=== PATIENT | female | born 1980 | race Caucasian/White ===

== ENCOUNTER 2020-06-12 12:10 | Inpatient (IN) | payer MEDICAID ==
[~2020-06-12] VITALS: Ht 149.9 cm; Wt 67.3 kg
[~2020-06-12 12:10] MED LIST: QUET100T PO; QUET100T33 PO
[2020-06-12] MEDS ORDERED: ZOLPIDEM TARTRATE 10 MG TABLET PO PRN ×2 (13:00→13:45)
[2020-06-12] MEDS ORDERED: LORazepam 2 MG TABLET PO PRN (13:00)
[2020-06-12] MEDS ORDERED: HALOPERIDOL 5 MG TABLET PO PRN ×2 (13:00→13:45)
[2020-06-12 15:15] VITALS: BP 133/89
[2020-06-12 16:01] VITALS: BP 133/89
[2020-06-12 16:28] VITALS: BP 133/89
[2020-06-12] MEDS: LORazepam 2 MG TABLET PO PRN (16:35)
[2020-06-12] MEDS ORDERED: INFLUENZA VIRUS VACCINE QVS 2020-21 (6MO+)/PF 60 MCG/0.5 ML SYRINGE IM ONE (19:45)
[2020-06-13] MEDS: LORazepam 2 MG TABLET PO PRN ×3 (05:22→15:46)
[2020-06-13 05:26] VITALS: BP 143/92
[2020-06-13 08:20] LABS: BASOPHILS % (AUTO) 0.5 % (0.0-2.0); EOSINOPHILS % (AUTO) 1.2 % (1.0-6.0); HEMATOCRIT 37.3 % (36-46); HEMOGLOBIN 12.4 g/dL (12.0-16.0); LYMPHOCYTES # (AUTO) 1.4 K/uL (1.0-4.8); LYMPHOCYTES % (AUTO) 22.5 % (22.0-44.0); MEAN CORPUSCULAR HEMOGLOBIN 30.3 pg (26.0-34.0); MEAN CORPUSCULAR HGB CONC 33.2 G/dL (31.0-37.0); MEAN CORPUSCULAR VOLUME 91 fL (80-100); MONOCYTES # (AUTO) 0.4 K/uL (0.1-1.0); MONOCYTES % (AUTO) 6.6 % (2.0-9.0); NEUTROPHILS # (AUTO) 4.2 K/uL (1.8-7.7); NEUTROPHILS % (AUTO) 69.2 % (40.0-70.0); PLATELET COUNT (AUTO) 388 K/uL (150-450); RED BLOOD CELL COUNT(AUTO) 4.09 MIL/uL (4.00-5.20); RED CELL DISTRIBUTION WIDTH 13.9 % (11.5-14.5)
[2020-06-13 08:32] LABS: HEMOGLOBIN A1C 5.4 % (3.8-5.6)
[2020-06-13 08:34] LABS: ALANINE AMINOTRANSFERASE 31 U/L (12-78); ALBUMIN 3.9 g/dL (3.4-5.0); ALKALINE PHOSPHATASE 55 U/L (46-116); ANION GAP 10 mmol/L (8-16); ASPARTATE AMINOTRANSFERASE 34 U/L (15-37); BILIRUBIN,TOTAL 0.6 mg/dL (0.1-1.0); CALCIUM, TOTAL 9.4 mg/dL (8.8-10.5); CARBON DIOXIDE 26 mmol/L (22-29); CHLORIDE 101 mmol/L (98-107); CHOL/HDL RATIO 2.2 (3.9-5.7); CHOLESTEROL 138 mg/dL (131-200); CREATININE 0.76 mg/dL (0.60-1.30); GLOMERULAR FILTR. RATE CALC > 60 mL/min (>60); GLUCOSE,RANDOM 104 mg/dL (70-110); HDL CHOLESTEROL 62 mg/dL (40-60); LDL CHOL (CALC.) 70 mg/dL (0-130); POTASSIUM 3.7 mmol/L (3.5-5.1); SODIUM SERUM 137 mmol/L (136-145); TOTAL PROTEIN, SERUM 7.3 g/dL (6.4-8.2); TRIGLYCERIDES 32 mg/dL (15-150); UREA NITROGEN, BLOOD 17 mg/dL (7-18)
[2020-06-13 08:38] VITALS: BP 128/84
[2020-06-13] MEDS: ARIPiprazole 10 MG TABLET PO SCH (09:02)
[2020-06-13] MEDS: GABAPENTIN 400 MG CAPSULE PO SCH ×3 (09:02→15:47)
[2020-06-13] MEDS: ACETAMINOPHEN 325 MG TABLET PO PRN (10:43)
[2020-06-13] MEDS ORDERED: MAG HYDROX/AL HYDROX/SIMETH ES 30 ML SUSPENSION UDCUP PO PRN (11:45)
[2020-06-13] MEDS ORDERED: PETROLATUM,WHITE 28 GM JELLY TP PRN (11:45)
[2020-06-13] MEDS ORDERED: DOCUSATE SODIUM 100 MG CAPSULE PO PRN (11:45)
[2020-06-13] MEDS ORDERED: OMEPRAZOLE 20 MG CAPSULE PO PRN (11:45)
[2020-06-13] MEDS ORDERED: ALBUTEROL SULFATE HFA 90 MCG/PUFF 8 GM INHALER IH PRN (11:45)
[2020-06-13] MEDS ORDERED: BACITRACIN 28 GM OINTMENT TP PRN (11:45)
[2020-06-13] MEDS ORDERED: LOPERAMIDE HCL 2 MG CAPSULE PO PRN (11:45)
[2020-06-13] MEDS ORDERED: CloNIDine HCL 0.1 MG TABLET PO PRN (11:45)
[2020-06-13] MEDS ORDERED: ONDANSETRON HCL 4 MG TABLET PO PRN (11:45)
[2020-06-13] MEDS ORDERED: BENZOCAINE/MENTHOL LOZENGE PO PRN (11:45)
[2020-06-13] MEDS ORDERED: MAGNESIUM HYDROXIDE SUSPENSION 30 ML UDCUP PO PRN (11:45)
[2020-06-13 16:12] VITALS: BP 121/62
[2020-06-14] MEDS: LORazepam 2 MG TABLET PO PRN ×4 (03:11→20:25)
[2020-06-14 04:38] VITALS: BP 129/73
[2020-06-14] MEDS: ACETAMINOPHEN 325 MG TABLET PO PRN ×2 (05:30→17:58)
[2020-06-14] MEDS: GABAPENTIN 400 MG CAPSULE PO SCH ×3 (08:05→17:11)
[2020-06-14] MEDS: ARIPiprazole 10 MG TABLET PO SCH (08:05)
[2020-06-14 08:48] VITALS: BP 117/73
[2020-06-14] MEDS: IBUPROFEN 600 MG TABLET PO PRN (11:26)
[2020-06-14 16:13] VITALS: BP 134/86
[2020-06-15 00:26] VITALS: BP 134/80
[2020-06-15] MEDS: LORazepam 2 MG TABLET PO PRN ×5 (00:33→17:49)
[2020-06-15] MEDS: ACETAMINOPHEN 325 MG TABLET PO PRN ×3 (05:47→16:21)
[2020-06-15 08:03] LABS: AMPHET/METH SCREEN,URINE NEGATIVE (NEGATIVE); BARBITURATE SCREEN, URINE NEGATIVE (NEGATIVE); BENZODIAZEPINES SCREEN,URINE NEGATIVE (NEGATIVE); CANNABINOID SCREEN,URINE POSITIVE (NEGATIVE); COCAINE SCREEN,URINE NEGATIVE (NEGATIVE); METHADONE SCREEN, URINE NEGATIVE (NEGATIVE); OPIATE SCREEN,URINE NEGATIVE (NEGATIVE)
[2020-06-15 08:07] LABS: APPEARANCE,URINE CLEAR (CLEAR); BILIRUBIN,URINE NEGATIVE (NEGATIVE); GLUCOSE, URINE (UA) NEGATIVE (NEGATIVE); KETONES,URINE NEGATIVE (NEGATIVE); LEUKOCYTE ESTERASE ,URINE NEGATIVE (NEGATIVE); NITRATE,URINE NEGATIVE (NEGATIVE); OCCULT BLOOD,URINE SMALL (NEGATIVE); PROTEIN,URINE NEGATIVE (NEGATIVE); UROBILINOGEN,URINE 0.2 mg/dL (<=1.0)
[2020-06-15 08:11] LABS: PHENCYCLIDINE SCREEN,URINE NEGATIVE (NEGATIVE)
[2020-06-15 08:19] VITALS: BP 118/71
[2020-06-15] MEDS: ARIPiprazole 10 MG TABLET PO SCH (08:36)
[2020-06-15] MEDS: GABAPENTIN 400 MG CAPSULE PO SCH ×3 (08:36→16:21)
[2020-06-15 08:42] LABS: BACTERIA,URINE None Seen /HPF (None Seen); SQUAMOUS EPITHELIAL CELL,UR Few /LPF (None Seen); WBC,URINE None Seen /HPF (0-5)
[2020-06-15 16:08] VITALS: BP 120/84
[2020-06-16 00:05] VITALS: BP 112/76
[2020-06-16] MEDS: ACETAMINOPHEN 325 MG TABLET PO PRN ×3 (00:07→21:31)
[2020-06-16 04:28] VITALS: BP 134/90
[2020-06-16] MEDS: LORazepam 2 MG TABLET PO PRN ×4 (05:15→17:53)
[2020-06-16 06:00] VITALS: BP 136/84
[2020-06-16] MEDS: IBUPROFEN 600 MG TABLET PO PRN ×2 (06:11→16:01)
[2020-06-16 08:00] VITALS: BP 111/69
[2020-06-16] MEDS: ARIPiprazole 10 MG TABLET PO SCH (08:16)
[2020-06-16] MEDS: GABAPENTIN 400 MG CAPSULE PO SCH ×3 (08:17→16:01)
[2020-06-16 16:30] VITALS: BP 120/68
[2020-06-17 00:16] VITALS: BP 128/68
[2020-06-17] MEDS: IBUPROFEN 600 MG TABLET PO PRN ×2 (00:43→14:38)
[2020-06-17] MEDS: LORazepam 2 MG TABLET PO PRN ×4 (05:04→16:45)
[2020-06-17] MEDS: ACETAMINOPHEN 325 MG TABLET PO PRN (07:55)
[2020-06-17] MEDS: ARIPiprazole 10 MG TABLET PO SCH (08:06)
[2020-06-17] MEDS: GABAPENTIN 400 MG CAPSULE PO SCH ×3 (08:06→16:45)
[2020-06-17 08:22] VITALS: BP 126/80
[2020-06-17] MEDS: SUMAtriptan SUCCINATE 25 MG TABLET PO PRN (17:30)
[2020-06-18 01:31] VITALS: BP 120/83
[2020-06-18] MEDS: ACETAMINOPHEN 325 MG TABLET PO PRN ×2 (03:44→21:09)
[2020-06-18] MEDS: LORazepam 2 MG TABLET PO PRN ×4 (05:43→20:35)
[2020-06-18] MEDS: GABAPENTIN 400 MG CAPSULE PO SCH ×3 (08:01→16:03)
[2020-06-18] MEDS: IBUPROFEN 600 MG TABLET PO PRN (08:01)
[2020-06-18] MEDS: ARIPiprazole 15 MG TABLET PO SCH (08:01)
[2020-06-18 08:18] VITALS: BP 115/56
[2020-06-18] MEDS: SUMAtriptan SUCCINATE 25 MG TABLET PO PRN (13:37)
[2020-06-18 16:14] VITALS: BP 124/78
[2020-06-19 01:20] VITALS: BP 122/73
[2020-06-19] MEDS: ACETAMINOPHEN 325 MG TABLET PO PRN (03:52)
[2020-06-19] MEDS: LORazepam 2 MG TABLET PO PRN ×4 (04:54→21:25)
[2020-06-19 08:18] VITALS: BP 122/79
[2020-06-19 08:44] LABS: COVID AG,FIA SOURCE NASOPHARYNGEAL
[2020-06-19] MEDS: ARIPiprazole 15 MG TABLET PO SCH (09:14)
[2020-06-19] MEDS: SUMAtriptan SUCCINATE 25 MG TABLET PO PRN ×2 (09:14→17:30)
[2020-06-19] MEDS: GABAPENTIN 400 MG CAPSULE PO SCH ×3 (09:14→16:09)
[2020-06-19 16:14] VITALS: BP 124/70
[2020-06-20 00:44] VITALS: BP 108/78
[2020-06-20] MEDS: SUMAtriptan SUCCINATE 25 MG TABLET PO PRN ×3 (01:39→16:00)
[2020-06-20] MEDS: LORazepam 2 MG TABLET PO PRN ×3 (05:04→17:37)
[2020-06-20 08:25] VITALS: BP 119/72
[2020-06-20] MEDS: ARIPiprazole 15 MG TABLET PO SCH (08:55)
[2020-06-20] MEDS: GABAPENTIN 400 MG CAPSULE PO SCH ×3 (08:55→15:59)
[2020-06-20 09:01] VITALS: BP 119/72
[2020-06-20] MEDS: ACETAMINOPHEN 325 MG TABLET PO PRN (12:20)
[2020-06-20 16:17] VITALS: BP 125/70
[2020-06-21 00:24] VITALS: BP 120/72
[2020-06-21 03:53] VITALS: BP 121/68
[2020-06-21] MEDS: SUMAtriptan SUCCINATE 25 MG TABLET PO PRN ×2 (03:55→14:06)
[2020-06-21] MEDS: LORazepam 2 MG TABLET PO PRN ×4 (05:26→20:05)
[2020-06-21] MEDS: ACETAMINOPHEN 325 MG TABLET PO PRN ×3 (06:04→23:49)
[2020-06-21 08:12] VITALS: BP 118/73
[2020-06-21] MEDS: ARIPiprazole 15 MG TABLET PO SCH (08:40)
[2020-06-21] MEDS: GABAPENTIN 400 MG CAPSULE PO SCH ×3 (08:40→15:57)
[2020-06-21 16:33] VITALS: BP 130/75
[2020-06-22] MEDS: LORazepam 2 MG TABLET PO PRN ×2 (04:52→08:55)
[2020-06-22 04:53] VITALS: BP 124/74
[2020-06-22] MEDS: SUMAtriptan SUCCINATE 25 MG TABLET PO PRN (06:59)
[2020-06-22] MEDS: GABAPENTIN 400 MG CAPSULE PO SCH ×3 (08:21→16:30)
[2020-06-22] MEDS: ARIPiprazole 15 MG TABLET PO SCH (08:21)
[2020-06-22 08:32] VITALS: BP 118/74
[2020-06-22] MEDS: ACETAMINOPHEN 325 MG TABLET PO PRN (10:50)
[2020-06-22] MEDS ORDERED: ARIP15TA2 PO (13:05)
[2020-06-22] MEDS ORDERED: GABA-1181 PO (13:05)
== END 2020-06-22 17:15 | disposition home or self-care (01) | DRG 750 ==
LOC: B3A 13:55
PROVIDERS: ADMIT Psychiatry & Neurology Psychiatry; ATTEND Psychiatry & Neurology Psychiatry
DX: F25.9 Schizoaffective disorder, unspecified (principal); I10 Essential (primary) hypertension; G43.909 Migraine, unspecified, not intractable, without status migrainosus; F41.9 Anxiety disorder, unspecified; K59.00 Constipation, unspecified; G47.00 Insomnia, unspecified; F12.90 Cannabis use, unspecified, uncomplicated; Z20.822 Contact with and (suspected) exposure to COVID-19; Z28.21 Immunization not carried out because of patient refusal
CPT/HCPCS: 80307; 83036; 87081; 87426